=== PATIENT | female | born 1970 | race Caucasian/White ===

== ENCOUNTER 2016-10-28 20:22 | Emergency (ER) | payer OTHER ==
--- NOTE | 2016-10-28 21:35 | DIAGNOSTIC IMAGING REPORT ---
PROCEDURE: CT HEAD WITHOUT CONTRAST INDICATION: Fall injury, initial encounter TECHNIQUE: Noncontrast axial images with sagittal and coronal reformations. COMPARISON: None. FINDINGS: Sulci, ventricular system, and brain parenchyma are normal. No evidence of acute intracranial process. Minor left maxillary sinus mucosal thickening. Mastoid are clear. IMPRESSION: 1. No acute intracranial abnormality 2. Minor left maxillary sinus disease 3. Results discussed with Dr. Avila at 09:32 p.m.[facility] Standard Time
--- NOTE | 2016-10-28 21:35 | DIAGNOSTIC IMAGING REPORT ---
PROCEDURE: CT HEAD WITHOUT CONTRAST INDICATION: Fall injury, initial encounter TECHNIQUE: Noncontrast axial images with sagittal and coronal reformations. COMPARISON: None. FINDINGS: Sulci, ventricular system, and brain parenchyma are normal. No evidence of acute intracranial process. Minor left maxillary sinus mucosal thickening. Mastoid are clear. IMPRESSION: 1. No acute intracranial abnormality 2. Minor left maxillary sinus disease 3. Results discussed with Dr. Avila at 09:32 p.m.[facility] Standard Time
--- NOTE | 2016-10-28 22:45 | ED CLINICAL REPORT ---
Clinical Report - Physicians/Mid Levels [facility] [address] [place] [address] 10/28/2016 20:23 [id number], X-RAYS, AND EKG CT Head: (PROCEDURE: CT HEAD WITHOUT CONTRAST INDICATION: Fall injury, initial encounter TECHNIQUE: Noncontrast axial images with sagittal and coronal reformations. COMPARISON: None. FINDINGS: Sulci, ventricular system, and brain parenchyma are normal. No evidence of acute intracranial process. Minor left maxillary sinus mucosal thickening. Mastoid are clear. IMPRESSION: 1. No acute intracranial abnormality 2. Minor left maxillary sinus disease). Head CT performed without contrast. The study was independently viewed by me and interpreted by the radiologist. The study was discussed with the radiologist (via pacs and phone). CLINICAL IMPRESSION 10/28/2016 21:50 BP: 116/68. HR: 97. RR: 20. O2 saturation: 97%. Pain level now: 5/10. Blood pressure normal. Oxygen saturation normal. Minor closed head injury. Unknown whether a loss of consciousness occurred. Memory loss. Confusion. (acute). INSTRUCTIONS Do not work for two days. Warnings: GENERAL WARNINGS: Return or contact your physician immediately if your condition worsens or changes unexpectedly, if not improving as expected, or if other problems arise. Specifically return if pain, vomiting, bleeding, breathing difficulty or fever. Your Current Medications: CONTINUE TAKING THE FOLLOWING MEDICATIONS: Albuterol Sulfate Inhalation. Claritin Oral. ClonazePAM Oral. Flexeril*. Flonase Nasal. Gabapentin Oral. Omeprazole Oral. Prescription Medications: Percocet 5 mg/325 mg: take 1 tablet orally every 6 hours as needed for pain. Dispense ten (10). No refill. Substitution is permissible. Follow-up: Return to the emergency department as needed. Follow up with your doctor in three days. Reason for referral: recheck today's concerns. Summary of care provided to patient via paper. Screening today revealed the patient's blood pressure to be in the normal range. The patient should follow up with a primary care provider for blood pressure management. Understanding of the discharge instructions verbalized by patient. (Electronically signed by Kandi Benjamin A.R.N.P. 10/31/2016 14:05)
--- NOTE | 2016-10-28 22:45 | ED NURSING NOTES ---
Clinical Report - Nurses [facility] [address] [place] [address] 10/28/2016 20:23 Patient: LEVI CABRALES TRIAGE Triage time 20:34. Acuity: LEVEL 4. Chief Complaint: INJURY TO HEAD and (Lost balance after getting out of shower and fell backwards back in to shower. Says "I am really sore but I am really sleepy which concerns me, I went to do some homework and kind of fell asleep." No blood thinner use.). Alert. No acute distress. SEPSIS SCREEN: Sepsis Screen: negative. Negative (no infection suspected/documented). --20:43 Sonny Redmond R.N. 20:34 10/28/16. BP: 111/73 (regular adult cuff) taken on the left arm, via an automated monitor, while sitting. HR: 91 (normal rate). RR: 16 (regular, unlabored and normal). O2 saturation: 97% on room air. Temp: 97.6 F (oral). Pain level now: 03/24. --20:43 Sonny Redmond R.N. Weight: 68 kg stated. Height/Length: 66 inches Per Patient. BMI: 24.2. --20:39 Sonny Redmond R.N. Medications Omeprazole Oral. --20:37 Sonny Redmond R.N. Claritin Oral. --20:37 Sonny Redmond R.N. Flonase Nasal. --20:37 Sonny Redmond R.N. Albuterol Sulfate Inhalation. --20:37 Sonny Redmond R.N. Flexeril. --20:38 Sonny Redmond R.N. ClonazePAM Oral. --20:38 Sonny Redmond R.N. Gabapentin Oral. --20:38 Sonny Redmond R.N. Medication/allergy information source: the patient. --20:43 Sonny Redmond R.N. Allergies Sulfa Antibiotics. --20:39 Sonny Redmond R.N. Eggs or Egg-derived Products. --20:39 Sonny Redmond R.N. Buspirone. --20:39 Sonny Redmond R.N. History Arrived by private vehicle. Historian: patient. Accompanied by spouse. Primary physician (Dr. Alec Montes). This occurred today (Around 11 am). Mechanism of injury: fell while standing; lost balance. She has had a intermittent, throbbing occipital and frontal headache. She has had neck pain (Radiates down back in to bottom). No motor weakness, sensory loss or symptom related to bladder or bowel dysfunction. No loss of consciousness. Treatment CAMPAIGN ASSOCIATE: None. PAST MEDICAL HX: Immunizations: up-to-date. Tetanus immunization status is not up-to-date. Has not received seasonal influenza immunization. SOCIAL HX: Current every day heavy tobacco smoker (cigarette)- 1 pack per day. Occasional alcohol use. History of weekly drug use: marijuana. (Last use: last night). She has not traveled outside the [place] The patient was not exposed to MRSA. No infectious disease exposure. ABUSE ASSESSMENT: Abuse assessment: The patient was asked "Do you feel safe in your home?" and "Has anyone hurt you or threatened to hurt you?". No report of abuse. SELF HARM ASSESSMENT: A self harm assessment was performed. The patient answered "no" to the question "Do you have thoughts of harming or killing yourself?" and "Have you recently had thoughts about harming or killing others?". FALL RISK ASSESSMENT: Fall risk assessment completed. No fall risk identified. NUTRITIONAL RISK ASSESSMENT: The nutritional risk assessment revealed no deficiencies. FUNCTIONAL ASSESSMENT: Functional assessment: no impairments noted. LEARNING NEEDS ASSESSMENT: The learning needs assessment revealed no barriers. SKIN INTEGRITY ASSESSMENT: Skin integrity risk assessment completed. No skin integrity risk identified. --20:43 Sonny Redmond R.N. PROBLEMS: Anxiety Reaction. Fibromyalgia. Lower Extremity Pain. Myofascial Strain. LNMP - Last Normal Menstrual Period. --20:40 Sonny Redmond R.N. ADDITIONAL SURGERIES: Bone spur in foot repaired. Tubal Ligation. --20:40 Sonny Redmond R.N. Assessment GENERAL / NEURO / PSYCH: Alert. Oriented X 4. Appears in no acute distress. Mora Coma Scale: 15- eyes open spontaneously (4); best verbal response- oriented x 4 (5); best motor response- obeys commands (6). Patient appears calm and cooperative. RESPIRATORY: Respirations not labored. SKIN: Skin is warm and dry. --20:43 Sonny Redmond R.N. Interventions ID band on patient. To treatment room. --20:43 Sonny Redmond R.N. PHYSICAL ASSESSMENT 20:46 10/28/16. Ambulatory to room. GENERAL / NEURO / PSYCH: Alert. Oriented X 4. Appears in no acute distress. HEENT: ( Tenderness at base of head). No swelling of head. Mucous membranes are pink. RESPIRATORY: Respirations not labored. SKIN: Skin is warm and dry. BACK: ( Right side of shoulder has a tender area). --20:46 Sherrell Alan. NURSING PROGRESS NOTES Cold pack applied. Patient gowned. Warming measures: blanket applied. Reassurance given to the patient. Two patient identifiers checked. Call light placed in reach. Side rails up x 1. Bed placed in lowest position. Brakes of bed on. Patient ready for evaluation- chart flagged. --20:47 Sherrell Alan Pulse oximeter and NIBP monitor placed on patient; monitor alarms on. --20:47 Sherrell Alan 20:55 10/28/16. BP: 127/51. HR: 95. RR: 20. O2 saturation: 96% on room air. --20:56 Sherrell Alan 20:56 10/28/16. Pain level now 01/22. --20:56 Sherrell Alan 21:13 10/28/2016 Percocet (Oxycodone-Acetaminophen) PO 5/325 mg Tablets 1 tab given. Allergies verified, confirmed 5 rights and sedative warning given to the patient and patient's family. --21:28 Sherrell Alan 21:50 10/28/16. BP: 116/68. HR: 97. RR: 20. O2 saturation: 97% on room air. Pain level now: 02/21. --21:52 Sherrell Alan. DISPOSITION / DISCHARGE 23:03 10/28/16. Condition at departure: stable. No learning barriers present. Discharge instructions provided and reviewed with the patient and spouse. Reviewed medication(s) side effects, precautions, dosing and course information. Prescription(s) given to the patient. Reviewed need for increased fluid intake. Patient and spouse verbalized understanding. Written instructions provided in Urdu. ( Follow up with PCP in two days.). The patient was discharged by the physician. She was discharged home and accompanied by spouse. She left the Emergency Department ambulatory and via private vehicle. Spouse driving. --23:03 Sherrell Alan 23:01 10/28/16. BP: 104/68. HR: 100. RR: 20. O2 saturation: 99% on room air. Temp: deferred. Pain level now: 02/21. --23:03 Sherrell Alan The goals identified in the patient's plan of care were met. Reviewed warnings (Do not drive while on narcotic or sedative medications). FALL RISK ASSESSMENT: Fall risk assessment completed. No fall risk identified. --23:04 Sherrell Alan. Locked/Released at 10/29/2016 0:21 by Sherrell Alan,
--- NOTE | 2016-10-28 22:45 | ED CLINICAL REPORT ---
Clinical Report - Physicians/Mid Levels [facility] [address] [place] [address] 10/28/2016 20:23 [id number]S, X-RAYS, AND EKG CT Head: (PROCEDURE: CT HEAD WITHOUT CONTRAST INDICATION: Fall injury, initial encounter TECHNIQUE: Noncontrast axial images with sagittal and coronal reformations. COMPARISON: None. FINDINGS: Sulci, ventricular system, and brain parenchyma are normal. No evidence of acute intracranial process. Minor left maxillary sinus mucosal thickening. Mastoid are clear. IMPRESSION: 1. No acute intracranial abnormality 2. Minor left maxillary sinus disease). Head CT performed without contrast. The study was independently viewed by me and interpreted by the radiologist. The study was discussed with the radiologist (via pacs and phone). CLINICAL IMPRESSION 10/28/2016 21:50 BP: 116/68. HR: 97. RR: 20. O2 saturation: 97%. Pain level now: 5/10. Blood pressure normal. Oxygen saturation normal. Minor closed head injury. Unknown whether a loss of consciousness occurred. Memory loss. Confusion. (acute). INSTRUCTIONS Do not work for two days. Warnings: GENERAL WARNINGS: Return or contact your physician immediately if your condition worsens or changes unexpectedly, if not improving as expected, or if other problems arise. Specifically return if pain, vomiting, bleeding, breathing difficulty or fever. Your Current Medications: CONTINUE TAKING THE FOLLOWING MEDICATIONS: Albuterol Sulfate Inhalation. Claritin Oral. ClonazePAM Oral. Flexeril*. Flonase Nasal. Gabapentin Oral. Omeprazole Oral. Prescription Medications: Percocet 5 mg/325 mg: take 1 tablet orally every 6 hours as needed for pain. Dispense ten (10). No refill. Substitution is permissible. Follow-up: Return to the emergency department as needed. Follow up with your doctor in three days. Reason for referral: recheck today's concerns. Summary of care provided to patient via paper. Screening today revealed the patient's blood pressure to be in the normal range. The patient should follow up with a primary care provider for blood pressure management. Understanding of the discharge instructions verbalized by patient. (Electronically signed by Kandi Benjamin A.R.N.P. 10/31/2016 14:05)
--- NOTE | 2016-10-28 22:46 | ED ORDER SUMMARY ---
..... Patient: LEVI CABRALES OrderSheet [facility] VisitID: [id number] [address] [place] [address] 46y, F Registration Date/Time: 10/28/2016 ORDER SHEET Weight: 68.0 kg (stated) Allergies: Sulfa Antibiotics, Eggs or Egg-derived Products, Buspirone GENERAL ORDERS: CT Head wo Cont Urgent (21:15 10/28/2016 Batsheva Feliciano) (Ack 21:19 LTapper) (21:26 Maria Isabel) Ice (21:15 10/28/2016 Batsheva Feliciano) (21:17 HSoule) MEDICATION ORDERS: Percocet PO 5/325 mg (HIGH ALERT MEDICATION, NOW) (21:15 10/28/2016 Batsheva Feliciano) (Ack 21:15 HSoule) (21:28 HSoule) IV FLUIDS: ORDER SHEET NOTES: [Electronically signed by Sherrell Alan (00:10/29/2016)] [Electronically signed by Kandi Benjamin (14:05 10/31/2016)] [Electronically locked/signed by Sherrell Alan (00:10/29/2016)]
--- NOTE | 2016-10-28 22:46 | ED ORDER SUMMARY ---
..... Patient: LEVI CABRALES OrderSheet [facility] VisitID: [id number] [address] [place] [address] 46y, F Registration Date/Time: 10/28/2016 ORDER SHEET Weight: 68.0 kg (stated) Allergies: Sulfa Antibiotics, Eggs or Egg-derived Products, Buspirone GENERAL ORDERS: CT Head wo Cont Urgent (21:15 10/28/2016 Batsheva Feliciano) (Ack 21:19 LTapper) (21:26 Maria Isabel) Ice (21:15 10/28/2016 Batsheva Feliciano) (21:17 HSoule) MEDICATION ORDERS: Percocet PO 5/325 mg (HIGH ALERT MEDICATION, NOW) (21:15 10/28/2016 Batsheva Feliciano) (Ack 21:15 HSoule) (21:28 HSoule) IV FLUIDS: ORDER SHEET NOTES: [Electronically signed by Sherrell Alan (00:10/29/2016)] [Electronically signed by Kandi Benjamin (14:05 10/31/2016)] [Electronically locked/signed by Sherrell Alan (00:10/29/2016)]
--- NOTE | 2016-10-31 14:05 | ED DISCHARGE INSTRUCTIONS ---
Patient: LEVI CABRALES General Instructions [facility] VisitID: [id number] [place] [address] 46y, F Registration Date/Time: 10/28/2016 10/28/2016 21:50 BP: 116/68. HR: 97. RR: 20. O2 saturation: 97%. Pain level now: 5/10. Blood pressure normal. Oxygen saturation normal. Minor closed head injury. Unknown whether a loss of consciousness occurred. Memory loss. Confusion. (acute). INSTRUCTIONS Do not work for two days. Warnings: GENERAL WARNINGS: Return or contact your physician immediately if your condition worsens or changes unexpectedly, if not improving as expected, or if other problems arise. Specifically return if pain, vomiting, bleeding, breathing difficulty or fever. Your Current Medications: CONTINUE TAKING THE FOLLOWING MEDICATIONS: Albuterol Sulfate Inhalation. Claritin Oral. ClonazePAM Oral. Flexeril*. Flonase Nasal. Gabapentin Oral. Omeprazole Oral. Prescription Medications: Percocet 5 mg/325 mg: take 1 tablet orally every 6 hours as needed for pain. Dispense ten (10). No refill. Substitution is permissible. Follow-up: Return to the emergency department as needed. Follow up with your doctor in three days. Reason for referral: recheck today's concerns. Summary of care provided to patient via paper. Screening today revealed the patient's blood pressure to be in the normal range. The patient should follow up with a primary care provider for blood pressure management. Understanding of the discharge instructions verbalized by patient. ADDITIONAL INFORMATION Concussion (with Wake-Up) A concussion happens when you hit your head with enough force to shake up the brain. This may cause you to lose consciousness be "knocked out" - but not always. Depending on how hard you hit your head, it will take from a few hours up to a few days to get better. Sometimes symptoms may last a few months or longer. This is called post-concussion syndrome. At first, you may have a headache, nausea, vomiting, or dizziness. You may also have problems concentrating or remembering things. This is normal. Symptoms should get better as the hours and days go by. Symptoms that get worse could be a sign of a more serious injury. This might be a bruise or bleeding in the brain. Thats why its important to watch for the warning signs listed below. Home care Follow these tips to help care for yourself at home: During the next day (24 hours) someone must stay with you. This person should wake you every 2 hours to check for the signs below. If your face or scalp swells, apply an ice pack for 20 minutes every 1 to 2 hours. Do this until the swelling starts to go down. You can make an ice pack by putting ice cubes in a plastic bag and wrapping the bag in a towel. for 20 minutes every 1-2 hours until the swelling starts to go down. You may use acetaminophen to control pain, unless another pain medicine was prescribed. If you have chronic liver or kidney disease, talk with your doctor before using these medicines. Also talk with your doctor if you ever had a stomach ulcer or GI bleeding. For the next 24 hours: Dont drink alcohol or take sedatives or medicines that make you sleepy. Dont drive or operate machinery. Avoid doing anything strenuous. Dont lift or strain. Dont return to sports or any activity that could cause you to hit your head until all symptoms are gone and you have been cleared by your doctor. A second head injury before fully recovering from the first one can lead to serious brain injury. Follow-up care Follow up with your doctor in 1 week, or as directed. Note: A radiologist will review any X-rays or CT scans that were taken. You will be told of any new findings that may affect your care. When to seek medical care Get prompt medical attention if any of these occur: Repeated vomiting Headache or dizziness that is severe or gets worse Unusual drowsiness, or unable to wake up as usual Confusion or change in behavior or speech, or memory loss Blurred vision Convulsion (seizure) Swelling on the scalp or face that gets worse Redness, warmth, or pus from the swollen area Fluid draining from or bleeding from the nose or ears Oxycodone Hydrochloride, Acetaminophen Oral tablet What is this medicine? ACETAMINOPHEN; OXYCODONE (a set a JANA prerna fen; ox i KOE done) is a pain reliever. It is used to treat mild to moderate pain. How should I use this medicine? Take this medicine by mouth with a full glass of water. Follow the directions on the prescription label. Take your medicine at regular intervals. Do not take your medicine more often than directed. Talk to your bird cage assembler regarding the use of this medicine in children. Special care may be needed. Patients over 65 years old may have a stronger reaction and need a smaller dose. What side effects may I notice from receiving this medicine? Side effects that you should report to your doctor or health progressive care nurse as soon as possible: allergic reactions like skin rash, itching or hives, swelling of the face, lips, or tongue breathing difficulties, wheezing confusion light headedness or fainting spells severe stomach pain yellowing of the skin or the whites of the eyes Side effects that usually do not require medical attention (report to your doctor or health progressive care nurse if they continue or are bothersome): dizziness drowsiness nausea vomiting What may interact with this medicine? alcohol antihistamines barbiturates like amobarbital, butalbital, butabarbital, methohexital, pentobarbital, phenobarbital, thiopental, and secobarbital benztropine drugs for bladder problems like solifenacin, trospium, oxybutynin, tolterodine, hyoscyamine, and methscopolamine drugs for breathing problems like ipratropium and tiotropium drugs for certain stomach or intestine problems like propantheline, homatropine methylbromide, glycopyrrolate, atropine, belladonna, and dicyclomine general anesthetics like etomidate, ketamine, nitrous oxide, propofol, desflurane, enflurane, halothane, isoflurane, and sevoflurane medicines for depression, anxiety, or psychotic disturbances medicines for sleep muscle relaxants naltrexone narcotic medicines (opiates) for pain phenothiazines like perphenazine, thioridazine, chlorpromazine, mesoridazine, fluphenazine, prochlorperazine, promazine, and trifluoperazine scopolamine tramadol trihexyphenidyl What if I miss a dose? If you miss a dose, take it as soon as you can. If it is almost time for your next dose, take only that dose. Do not take double or extra doses. Where should I keep my medicine? Keep out of the reach of children. This medicine can be abused. Keep your medicine in a safe place to protect it from theft. Do not share this medicine with anyone. Selling or giving away this medicine is dangerous and against the law. Store at room temperature between 20 and 25 degrees C (68 and 77 degrees F). Keep container tightly closed. Protect from light. This medicine may cause accidental overdose and if it is taken by other adults, children, or pets. Flush any unused medicine down the toilet to reduce the chance of harm. Do not use the medicine after the expiration date. What should I tell my health care provider before I take this medicine? They need to know if you have any of these conditions: brain tumor Crohn's disease, inflammatory bowel disease, or ulcerative colitis drink more than 3 alcohol containing drinks per day drug abuse or addiction head injury heart or circulation problems kidney disease or problems going to the bathroom liver disease lung disease, asthma, or breathing problems an unusual or allergic reaction to acetaminophen, oxycodone, other opioid analgesics, other medicines, foods, dyes, or preservatives or trying to get breast-feeding What should I watch for while using this medicine? Tell your doctor or health progressive care nurse if your pain does not go away, if it gets worse, or if you have new or a different type of pain. You may develop tolerance to the medicine. Tolerance means that you will need a higher dose of the medication for pain relief. Tolerance is normal and is expected if you take this medicine for a long time. Do not suddenly stop taking your medicine because you may develop a severe reaction. Your body becomes used to the medicine. This does NOT mean you are addicted. Addiction is a behavior related to getting and using a drug for a non-medical reason. If you have pain, you have a medical reason to take pain medicine. Your doctor will tell you how much medicine to take. If your doctor wants you to stop the medicine, the dose will be slowly lowered over time to avoid any side effects. You may get drowsy or dizzy. Do not drive, use machinery, or do anything that needs mental alertness until you know how this medicine affects you. Do not stand or sit up quickly, especially if you are an older patient. This reduces the risk of dizzy or fainting spells. Alcohol may interfere with the effect of this medicine. Avoid alcoholic drinks. There are different types of narcotic medicines (opiates) for pain. If you take more than one type at the same time, you may have more side effects. Give your health care provider a list of all medicines you use. Your doctor will tell you how much medicine to take. Do not take more medicine than directed. Call emergency for help if you have problems breathing. The medicine will cause constipation. Try to have a bowel movement at least every 2 to 3 days. If you do not have a bowel movement for 3 days, call your doctor or health progressive care nurse. Do not take Tylenol (acetaminophen) or medicines that have acetaminophen with this medicine. Too much acetaminophen can be very dangerous. Many nonprescription medicines contain acetaminophen. Always read the labels carefully to avoid taking more acetaminophen. You have been given the following additional information: Concussion w/ Wake-Up Oxycodone Hydrochloride, Acetaminophen Oral tablet Do not work for two days. (Electronically signed by Kandi Benjamin A.R.N.P. 10/31/2016 14:05)
--- NOTE | 2016-10-31 14:05 | ED MAR SUMMARY ---
..... Medication Administration Record [facility] [address] [place] [address] Patient: LEVI CABRLAES Visit ID: [id number] 46y, F Weight: 68.0 kg Height/Length: 66 in BMI: 24.2 ALLERGIES: Buspirone, Eggs or Egg-derived Products, Sulfa Antibiotics Given 21:13 10/28/2016 Sherrell Alan, Medication Administered: PERCOCET [PO] (OXYCODONE-ACETAMINOPHEN), Dose: 1 tab 5/325 mg Tablets PO. Medication Ordered: Percocet PO 5/325 mg (HIGH ALERT MEDICATION, NOW).
--- NOTE | 2016-10-31 14:05 | ED MAR SUMMARY ---
..... Medication Administration Record [facility] [address] [place] [address] Patient: LEVI CABRALES Visit ID: [id number] 46y, F Weight: 68.0 kg Height/Length: 66 in BMI: 24.2 ALLERGIES: Buspirone, Eggs or Egg-derived Products, Sulfa Antibiotics Given 21:13 10/28/2016 Sherrell Alan, Medication Administered: PERCOCET [PO] (OXYCODONE-ACETAMINOPHEN), Dose: 1 tab 5/325 mg Tablets PO. Medication Ordered: Percocet PO 5/325 mg (HIGH ALERT MEDICATION, NOW).
--- NOTE | 2016-10-31 14:05 | ED MED RECONCILIATION SUMMARY ---
Patient: LEVI CABRALES Medication Reconciliation Report [facility] VisitID: [id number] [address] [place] [address] 46y, F Registration Date/Time: 10/28/2016 Weight: 68.0 kg Height/Length: 66 in. BMI: 24.2 ALLERGIES: Buspirone, Eggs or Egg-derived Products, Sulfa Antibiotics The patient's Home Medications are listed below: CONTINUE TAKING THE FOLLOWING MEDICATIONS: Albuterol Sulfate Inhalation Claritin Oral ClonazePAM Oral Flexeril Flonase Nasal Gabapentin Oral Omeprazole Oral The source(s) of the original Home Medication information: patient The following Medications were given to the patient in the Emergency Department: Percocet [PO] PO 1 tab, administered: 10/28/2016 9:13:00 PM The following Medications were prescribed to the patient: Percocet 5 mg/325 mg: take 1 tablet orally every 6 hours as needed for pain. Dispense ten (10). No refill. Substitution is permissible. -- Kandi Benjamin A.R.N.P.
--- NOTE | 2016-10-31 14:05 | ED MED RECONCILIATION SUMMARY ---
Patient: LEVI CABRALES Medication Reconciliation Report [facility] VisitID: [id number] [address] [place] [address] 46y, F Registration Date/Time: 10/28/2016 Weight: 68.0 kg Height/Length: 66 in. BMI: 24.2 ALLERGIES: Buspirone, Eggs or Egg-derived Products, Sulfa Antibiotics The patient's Home Medications are listed below: CONTINUE TAKING THE FOLLOWING MEDICATIONS: Albuterol Sulfate Inhalation Claritin Oral ClonazePAM Oral Flexeril Flonase Nasal Gabapentin Oral Omeprazole Oral The source(s) of the original Home Medication information: patient The following Medications were given to the patient in the Emergency Department: Percocet [PO] PO 1 tab, administered: 10/28/2016 9:13:00 PM The following Medications were prescribed to the patient: Percocet 5 mg/325 mg: take 1 tablet orally every 6 hours as needed for pain. Dispense ten (10). No refill. Substitution is permissible. -- Kandi Benjamin A.R.N.P.
== END 2016-10-28 23:00 | disposition home or self-care (01) ==
LOC: ED SRH 20:22
DX: S09.90XA Unspecified injury of head, initial encounter (principal); R41.3 Other amnesia; W19.XXXA Unspecified fall, initial encounter; Y93.9 Activity, unspecified; Y92.9 Unspecified place or not applicable; Y99.9 Unspecified external cause status; Z88.2 Allergy status to sulfonamides